=== PATIENT | female | born 2000 | race Caucasian/White ===

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

== ENCOUNTER 2019-07-13 12:44 | Inpatient (IN) | payer OTHER ==
[~2019-07-13] VITALS: Ht 152.4 cm; Wt 57.2 kg
[2019-07-13 12:50] VITALS: Ht 152.4 cm; Wt 57.2 kg
[2019-07-13 13:28] LABS: BASOPHIL % 0.5 % (0-2); PLATELET COUNT 332 x10^3mcL (130-400); RED CELL DISTRIBUTION WIDTH 13.9 % (11.5-14.5)
[2019-07-13 13:47] LABS: CALCIUM 8.6 mg/dL (8.5-10.1); CARBON DIOXIDE 24.2 mmol/L (21-32); CHLORIDE SERUM 104 mmol/L (98-107); CREATININE SERUM 0.7 mg/dL (0.6-1.0); GFR1 > 60 mL/min; GLUCOSE SERUM 87 mg/dL (74-106); POTASSIUM SERUM 3.6 mmol/L (3.5-5.1); SODIUM SERUM 139 mmol/L (136-145)
[2019-07-13 13:52] LABS: ALBUMIN 4.2 g/dL (3.4-5.0); ALKALINE PHOSPHATASE 76 U/L (46-116); ALT/SGPT 16 U/L (14-59); AST/SGOT 8 U/L (15-37); BILIRUBIN TOTAL 0.36 mg/dL (0.20-1.00); TOTAL PROTEIN, SERUM 7.9 g/dL (6.4-8.2)
[2019-07-13 20:17] VITALS: BP 124/67
[2019-07-14 05:43] VITALS: BP 96/50
[2019-07-14 09:03] VITALS: BP 124/67
[2019-07-14 17:23] VITALS: BP 108/56
[2019-07-14 18:31] VITALS: BP 108/56
== END 2019-07-14 19:15 | disposition home or self-care (01) | DRG 532 ==
LOC: ED 12:44 → MU 17:17
PROVIDERS: ADMIT Obstetrics & Gynecology
DX: N94.6 Dysmenorrhea, unspecified (principal); N83.519 Torsion of ovary and ovarian pedicle, unspecified side; F32.9 Major depressive disorder, single episode, unspecified; F41.9 Anxiety disorder, unspecified; Z23 Encounter for immunization
CPT/HCPCS: 90658; G0378; J1885; J2270

== ENCOUNTER 2019-09-26 18:42 | Emergency (ER) | payer OTHER ==
[~2019-09-26] VITALS: Ht 154.9 cm; Wt 59.0 kg
[2019-09-26 19:16] VITALS: Ht 154.9 cm; Wt 59.0 kg
[2019-09-26 20:15] VITALS: BP 125/78
== END 2019-09-26 20:15 | disposition home or self-care (01) ==
LOC: ED 18:42
DX: J45.909 Unspecified asthma, uncomplicated (principal)
CPT/HCPCS: J2920; J7620

== ENCOUNTER 2019-09-27 22:06 | Emergency (ER) | payer OTHER ==
[~2019-09-27] VITALS: Ht 154.9 cm; Wt 59.0 kg
[2019-09-27 22:13] VITALS: Ht 154.9 cm; Wt 59.0 kg
[2019-09-28 00:57] VITALS: BP 120/59
== END 2019-09-28 00:57 | disposition home or self-care (01) ==
LOC: ED 22:06
DX: R05 Cough (principal); R06.02 Shortness of breath; R07.89 Other chest pain; J45.909 Unspecified asthma, uncomplicated
CPT/HCPCS: 87804; J1885; J2930